=== PATIENT | female | born 1990 | race Asian ===

== ENCOUNTER 2016-08-19 20:26 | Emergency (ER) | payer MEDICAID, OTHER ==
[~2016-08-19] VITALS: Ht 152.4 cm; Wt 48.5 kg
[2016-08-19 21:04] LABS: Urine Bilirubin Negative (Negative); Urine Blood Negative /uL (Negative); Urine Color Yellow (Yellow); Urine Glucose Normal (Normal); Urine Ketone Negative (Negative); Urine Mucus FEW (None Seen); Urine Nitrite Negative (Negative); Urine RBC <1 /hpf (0 - 4); Urine Squamous Epithelial Cell FEW /hpf (<5); Urine Urobilinogen Normal (Negative)
[2016-08-19 21:13] LABS: Basophils # (auto) 0 uL; Basophils % (auto) 0.2 % (0.0-2.0); Eosinophils # (auto) 0.2 uL; Eosinophils % (auto) 1.8 % (0.0-7.0); Hematocrit 39.3 % (36.0-46.0); Lymphocytes # (auto) 1.1 uL; Lymphocytes % (auto) 10.7 % (10.0-50.0); Mean Corpuscular Hemoglobin 29.2 pg (28.0-32.0); Mean Corpuscular Volume 88.4 fL (80.0-100.0); Mean Platelet Volume 8.1 fL (7.4-10.4); Monocytes # (auto) 0.8 uL; Neutrophils # (auto) 8.4 uL; Neutrophils % (auto) 79.3 % (37.0-80.0); Platelet Count (auto) 204 10^3/uL (140-450); Red Cell Distribution Width 13.2 % (11.6-16.0); White Blood Cell 10.5 10^3/uL (4.4-10.8)
[2016-08-19 21:15] LABS: Albumin 4.3 g/dL (3.4-5.0); BUN/Creatinine Ratio 22.7; Calcium 8.5 mg/dL (8.5-10.1); Potassium 3.9 mmol/L (3.5-5.1)
[2016-08-19 21:17] LABS: Bilirubin, Total 0.5 mg/dL (0.2-1.0); Total Protein 8.3 g/dL (6.4-8.2)
[2016-08-19 23:51] VITALS: BP 104/50
== END 2016-08-20 00:59 | disposition home or self-care (01) ==
LOC: ER 20:35
DX: N39.0 Urinary tract infection, site not specified (principal); K52.9 Noninfective gastroenteritis and colitis, unspecified; N83.8 Other noninflammatory disorders of ovary, fallopian tube and broad ligament
CPT/HCPCS: 36415; 74000; 74176; 80053; 81001; 81025; 85025